=== PATIENT | male | born 1945 | race African-American/Black ===

== ENCOUNTER 2020-02-01 13:02 | Outpatient (CLI) | payer MEDICARE, OTHER ==
--- NOTE | 2020-02-05 11:26 | RAD ---
XR Ba Swallow W/Speech Therap History: Dysphagia unspecified R 13.10 feeding difficulties R 63.3 Comparison: None. Findings: Multiple consistency contrast given to the patient via the speech pathologist. The radiolog ist was not present. Impression: Fluoroscopy for the speech pathologist. Please see their report for details of the exam.
== END 2020-02-01 13:03 | disposition home or self-care (01) ==
PROVIDERS: ATTEND Family Medicine
DX: I69.891 Dysphagia following other cerebrovascular disease (principal); R13.10 Dysphagia, unspecified; R63.3 Feeding difficulties
CPT/HCPCS: 74230

== ENCOUNTER 2020-02-13 08:38 | Inpatient (IN) | payer MEDICARE, OTHER ==
[2020-02-13 09:49] LABS: #Eosinphils 0.1 thou/uL (0.0-0.7); #Monocytes 0.4 thou/uL (0.11-0.59); #Neutrophils 4.9 thou/uL (1.40-6.50); %Basophils 0.5 % (0.0-1.0); %Eosinophils 0.9 % (0.0-10.0); %Lymphocytes 15.5 % (21.0-51.0); %Neutrophils 77.1 % (42.0-75.0); Hemoglobin 12.3 g/dL (14.0-18.0); Mean Corpuscular HGB CONC 32.6 g/dL (32.0-36.0); Mean Corpuscular Hemoglobin 31.9 pg (27.0-31.0); Mean Corpuscular Volume 97.9 fL (78.0-98.0); Mean Platelet Volume 7.3 fL (7.4-10.4); Platelet Count 320 thou/uL (130-400); RBC Distribution Width 12.3 % (11.5-14.5); Red Blood Cell (RBC) Count 3.86 mill/uL (4.70-6.10); White Blood Cell (WBC) Count 6.4 thou/uL (4.8-10.8)
[2020-02-13 10:13] LABS: Bilirubin Negative (Negative); Blood, Urine Small (Negative); Glucose, Urine (Dipstick) Negative (Negative); Ketone, Urine Negative (Negative); Leukocyte Negative (Negative); Nitrite Negative (Negative); Protein, Urine (Dipstick) Trace mg/dL (Neg-Trace); pH, Urine 6.5 (5.0-9.0)
[2020-02-13 10:16] LABS: Clarity Clear (Clear)
[2020-02-13 10:27] LABS: Bacteria/HPF None Seen HPF (None Seen); Squamous Epithelial 0-3 HPF (0-3); Transitional Epithelial 0-3 HPF (None Seen)
[2020-02-13 10:28] LABS: Albumin 3.6 g/dL (3.4-4.8)
[2020-02-13 10:28] LABS: Mucous/LPF 1+ LPF (<2+)
[2020-02-13 10:29] LABS: Chloride 101 mmol/L (98-107); Potassium 4.5 mmol/L (3.5-5.1); Sodium 140 mmol/L (136-145)
[2020-02-13 10:30] LABS: Calcium 9.2 mg/dL (7.8-10.44); Glucose 95 mg/dL (83-110)
[2020-02-13 10:31] LABS: Globulin 4.3 g/dL (2.4-3.5); Protein, Total 7.9 g/dL (5.8-8.1)
[2020-02-13 10:32] LABS: Anion Gap 18 mmol/L (10-20); Bilirubin, Total 0.5 mg/dL (0.2-1.2); Carbon Dioxide 26 mmol/L (23-31)
[2020-02-13 10:33] LABS: Alkaline Phosphatase 76 U/L (40-110)
[2020-02-13 10:34] LABS: Calc. Creatinine Clearance 0 mL/min (70-130)
[2020-02-13 10:35] LABS: BUN (Urea Nitrogen) 19 mg/dL (8.4-25.7)
[2020-02-13 10:36] LABS: ALT (SGPT) 16 U/L (8-55); AST (SGOT) 15 U/L (5-34); Magnesium 2.3 mg/dL (1.6-2.6)
[2020-02-13] MEDS ORDERED: Senokot S 8.6-50 MG TAB PER TUBE PRN (12:39)
[2020-02-13] MEDS ORDERED: Acetaminophen 325 MG TAB PER TUBE PRN (12:39)
[2020-02-13] MEDS ORDERED: Ondansetron PF 4 MG/2 ML Vial IVP PRN (12:39)
[2020-02-13] MEDS ORDERED: Metoprolol Tartrate 5 MG/5 ML VIAL IVP PRN (13:24)
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
[2020-02-13] MEDS ORDERED: Melatonin 3 MG TAB PO SCH (21:00)
[2020-02-13] MEDS ORDERED: Atorvastatin Calcium 10 MG TAB PO SCH (21:00)
[2020-02-13] MEDS: OLANZapine 2.5 MG TAB PO SCH (21:13)
[2020-02-13] MEDS: Carvedilol 6.25 MG TAB PO SCH (21:14)
[2020-02-13 22:03] VITALS: BMI 15.5
[2020-02-13 23:56] LABS: SARS-CoV-2 MS2 Positive; SARS-CoV-2 N Gene Negative; SARS-CoV-2 S Gene Negative; SARS-CoV-2 by NAA Not Detected (NotDetected); SARS-CoV-2 orf1ab Negative
[2020-02-14 06:52] LABS: #Basophils 0.1 thou/uL (0.0-0.2); #Eosinphils 0.1 thou/uL (0.0-0.7); #Monocytes 0.5 thou/uL (0.11-0.59); #Neutrophils 4.1 thou/uL (1.40-6.50); %Basophils 1.2 % (0.0-1.0); %Eosinophils 1.9 % (0.0-10.0); %Lymphocytes 17.8 % (21.0-51.0); %Monocytes 8.1 % (0.0-10.0); %Neutrophils 71.1 % (42.0-75.0); Hemoglobin 12.4 g/dL (14.0-18.0); Mean Corpuscular HGB CONC 31.8 g/dL (32.0-36.0); Mean Corpuscular Hemoglobin 31.3 pg (27.0-31.0); Mean Corpuscular Volume 98.5 fL (78.0-98.0); Mean Platelet Volume 7.2 fL (7.4-10.4); Platelet Count 321 thou/uL (130-400); RBC Distribution Width 12.2 % (11.5-14.5); Red Blood Cell (RBC) Count 3.97 mill/uL (4.70-6.10); White Blood Cell (WBC) Count 5.7 thou/uL (4.8-10.8)
[2020-02-14 07:11] LABS: Anion Gap 12 mmol/L (10-20); BUN (Urea Nitrogen) 18 mg/dL (8.4-25.7); Calc. Creatinine Clearance 65 mL/min (70-130); Calcium 8.9 mg/dL (7.8-10.44); Carbon Dioxide 25 mmol/L (23-31); Chloride 106 mmol/L (98-107); Glucose 76 mg/dL (83-110); Potassium 4.1 mmol/L (3.5-5.1); Sodium 139 mmol/L (136-145)
--- NOTE | 2020-02-14 07:34 | PDOC.HOSPP ---
- Subjective Encounter Date: 02/14/20 Encounter Time: 07:32 Subjective: Patient seen and examined. No new complaints. No overnight events. Patient resting comfortably in bed, aphasic at baseline. Family working with palliative care team to determine PEG placement vs. palliative/hospice. Once family makes decision, we will proceed per their wishes. Patient npo. - Objective Vital Signs & Weight: Vital Signs (12 hours) Temp Pulse Resp BP Pulse Ox 02/14/20 03:57 97.9 F 56 L 18 163/94 H 100 02/13/20 23:34 97.2 F L 56 L 18 144/87 H 100 Weight Weight 108 lb I&O: 02/13/20 02/14/20 02/15/20 06:59 06:59 06:59 Intake Total 750 Balance 750 Result Diagrams: 02/14/20 06:39 02/14/20 06:39 Hospitalist ROS - Review of Systems ROS unobtainable: due to mental status - Medication Medications: Active Medications Generic Name Dose Route Start Last Admin Trade Name Freq PRN Reason Stop Dose Admin Carvedilol 6.25 mg 02/13/20 21:00 02/13/20 21:14 Carvedilol 6.25 Mg Tab PO Not Given BID JEFF Olanzapine 2.5 mg 02/13/20 21:00 02/13/20 21:13 Olanzapine 2.5 Mg Tab PO Not Given HS JEFF - Exam General Appearance: NAD, awake alert. negative: ill appearing General - other findings: cachectic Heart: RRR, no murmur, no gallops, no rubs, normal peripheral pulses Respiratory: CTAB, no wheezes, no rales, no ronchi, no tachypnea Respiratory - other findings: diminished to lower lobes Gastrointestinal: soft, non-tender, non-distended, normal bowel sounds, no guarding, no rigidity Extremities: no edema Skin: no rashes Neurological: no new deficit Psychiatric - other findings: alert, aphasic, tardive dyskinesia Hosp A/P (1) Dysphagia Code(s): R13.10 - DYSPHAGIA, UNSPECIFIED Status: Acute (2) Failure to thrive Code(s): ZOF6947 - Status: Acute Qualifiers: Failure to thrive age range: in adult Qualified Code(s): R62.7 - Adult failure to thrive (3) Severe protein-calorie malnutrition Code(s): E43 - UNSPECIFIED SEVERE PROTEIN-CALORIE MALNUTRITION Status: Acute (4) Dementia Code(s): F03.90 - UNSPECIFIED DEMENTIA WITHOUT BEHAVIORAL DISTURBANCE Status: Chronic (5) Bipolar disorder Code(s): F31.9 - BIPOLAR DISORDER, UNSPECIFIED Status: Chronic (6) Schizophrenia Code(s): F20.9 - SCHIZOPHRENIA, UNSPECIFIED Status: Chronic (7) HTN (hypertension) Code(s): I10 - ESSENTIAL (PRIMARY) HYPERTENSION Status: Chronic (8) HLD (hyperlipidemia) Code(s): E78.5 - HYPERLIPIDEMIA, UNSPECIFIED Status: Chronic - Plan The patient's family is working with palliative care team to determine best course of action for patient and family. Per nursing, spouse wants to go forward with PEG tube insertion. GI consulted, appreciate recs. Nursing to make GI aware of family wishes. Covid negative Reviewed labs, stable. Will start patient on IVFs with dextrose and potassium. NPO. Discussed case with attending physician, Dr. Alaniz.
[2020-02-14] MEDS ORDERED: FLU VACC QS2020-21(65YR UP)/PF 240 MCG/0.7 ML SYRINGE IM ONE (09:00)
[2020-02-14] MEDS: Carvedilol 6.25 MG TAB PO SCH ×2 (09:01→22:12)
[2020-02-14] MEDS: Potassium Chloride 10 MEQ in Dextrose 5 % And 0.9 % NaCl 1,000 ML IV SCH (09:21)
[2020-02-14] MEDS ORDERED: Lidocaine 1% PF 5 ML VIAL ONE (11:30)
[2020-02-14] MEDS ORDERED: PROPOFOL 200 MG/20 ML VIAL ONE (11:30)
--- NOTE | 2020-02-14 16:32 | OP ---
DATE OF PROCEDURE: 02/14/2020 PROCEDURES PERFORMED: 1. Esophagogastroduodenoscopy with biopsy. 2. Percutaneous gastrostomy tube placement. INDICATIONS FOR PROCEDURE: Oropharyngeal dysphagia with aspiration on modified volume barium swallow study. DESCRIPTION OF PROCEDURE: After the risks and benefits of the procedure were explained to the patient's surrogate (the patient's , Gail Millard) including risks of bleeding, infection, perforation, reactions to anesthesia, aspiration, and/or pain, informed consent was obtained. The patient was then taken to the endoscopy suite where he was placed in the supine position in preparation for the upper endoscopy. Deep sedation was administered via propofol and anesthesia support. Once adequate sedation was achieved, the standard gastroscope was introduced into the mouth with intubation of the esophagus, stomach, and the proximal small intestines with the findings listed below. After the initial examination of the EGD portion of this examination was done using one-to-one compression and transillumination, a suitable site for the gastrostomy tube placement was elucidated at approximately 2 cm inferiorly to the left ribs. The site was then cleaned with chlorhexidine and allowed to dry, at which point the site was then prepped in sterile fashion using an aspiration needle, approximately 2 to 3 mL of 1% lidocaine was then instilled initially at first in a wheel type fashion underneath the skin within the needle inverted perpendicular to the skin with back pressure as it was advanced into the stomach. On withdrawal of the needle from the stomach, the remaining 2 to 3 mL of lidocaine was then instilled. All sharps were then contained in the back field. Using a surgical scalpel, a 1 cm vertical incision was then made in the skin with mild oozing of blood from the site, that was easily controlled using only gauze. Then, using a Finder needle, it was then advanced into the stomach with the needle removed from the catheter upon entry into the stomach. A guidewire was then fed through the catheter and retrieved on the other side using a snare via the biopsy port of the scope. The guidewire was then withdrawn through the esophagus and out of the mouth with good maintenance of control of the guidewire at both ends at all times. A 20-Russian percutaneous gastrostomy tube was then affixed to the guidewire, and using a push technique, it was advanced into the stomach and out through the anterior wall of the stomach and through the skin. Once this was performed, second-look endoscopy was then performed, confirming positioning of the percutaneous gastrostomy tube, which was freely rotatable. On completion of this portion of the procedure, all equipment was removed the patient and the percutaneous gastrostomy tube was cut to length with the external adapter placed at that time. FINDINGS: Esophagus: Normal-appearing mucosa was seen in the proximal, mid, and distal esophagus. There was no evidence of erosions, ulcerations, mass lesions, or active/recent bleeding. Stomach: Normal-appearing mucosa was seen at the gastroesophageal junction and within the gastric cardia. However, a 3-cm irregularly-edged patch of whitish-appearing mucosa was seen in the gastric fundus, surrounded by normal-appearing mucosa. Normal-appearing mucosa was then seen in the remainder of the fundus, body, greater curvature, antrum, and incisura. Random gastric biopsies were then obtained from the antrum, incisura, body, and this whitish patch and placed in a specimen jar for further evaluation. Duodenum: Normal-appearing mucosa was seen within the proximal portion of the duodenal bulb; however, numerous superficial ulcerations, measuring between 2 to 5 mm in size, were seen in the distal portion of the duodenal bulb and extending into the duodenal sweep. None of these ulcerations exhibited high-risk stigmata of active or recent bleeding. Once past the duodenal sweep, no additional ulcerations were seen in the distal 2nd portion and 3rd portion of the duodenum. There was no evidence of mass lesions or active/recent bleeding seen in this region. Again, random gastric biopsies were taken previously for evaluation of possible H pylori status. PEG tube placement: A 20-Russian [employer] percutaneous gastrostomy tube was successfully placed within the anterior wall of the stomach with the procedure outlined as above. On second-look endoscopy, it was in appropriate position and freely rotatable. IMPRESSION: 1. Successful placement of a 20-Russian [employer] percutaneous gastrostomy tube. 2. A 3-cm whitish patch in the gastric fundus consistent with atrophic gastritis. 3. Numerous small superficial ulcerations seen in the distal duodenal bulb and second portion of the duodenum, concerning for Helicobacter pylori versus nonsteroidal anti-inflammatory drug use; status post random gastric biopsies for evaluation. RECOMMENDATIONS: 1. Would continue the patient n.p.o. status for the next 6 hours, then start tube feeds according to Dietary recommendations. 2. Would follow up on the biopsy results and treat if positive for H pylori. 3. Would refrain from any NSAIDs during this admission given the ulcerations seen in the duodenal bulb. 4. Pain control per primary team. 5. Would continue the patient on an abdominal binder given the increased likelihood of inadvertent removal of the percutaneous gastrostomy tube. 6. If the gastrostomy tube is inadvertently removed within the next 6 weeks, this could be considered as surgical emergency with urgent General Surgery consult and stat CT scan for further evaluation at that time (if needed). 7. Would adhere to standard PEG tube care precautions; (for example, would refrain from placing any materials between the external bumper and the skin, maintain a distance of 1 cm between the external bumper and the skin at all times, would be able to rotate the percutaneous gastrostomy to 720 degrees in either direction daily, would clean the wound with running soap and water, would instill approximately 60 mL of water before and after any tube feeds to maintain the integrity of the enteric tube). We will continue to follow. Please call with any questions. Job ID: [id number]
[2020-02-14] MEDS: OLANZapine 2.5 MG TAB PO SCH (22:12)
[2020-02-15] MEDS: Potassium Chloride 10 MEQ in Dextrose 5 % And 0.9 % NaCl 1,000 ML IV SCH (05:26)
[2020-02-15 05:39] LABS: #Lymphocytes 0.8 thou/uL (1.20-3.40); #Monocytes 0.6 thou/uL (0.11-0.59); #Neutrophils 17.5 thou/uL (1.40-6.50); %Eosinophils 0.1 % (0.0-10.0); Hemoglobin 11.3 g/dL (14.0-18.0); Mean Corpuscular HGB CONC 33.4 g/dL (32.0-36.0); Mean Corpuscular Hemoglobin 33.4 pg (27.0-31.0); Mean Platelet Volume 7.1 fL (7.4-10.4); Platelet Count 288 thou/uL (130-400); RBC Distribution Width 12.3 % (11.5-14.5); Red Blood Cell (RBC) Count 3.37 mill/uL (4.70-6.10); White Blood Cell (WBC) Count 18.8 thou/uL (4.8-10.8)
[2020-02-15] MEDS: Carvedilol 6.25 MG TAB PO SCH ×2 (09:18→21:42)
[2020-02-15 09:58] LABS: Sodium 142 mmol/L (136-145)
[2020-02-15 10:01] LABS: Anion Gap 11 mmol/L (10-20)
[2020-02-15] MEDS ORDERED: Iopamidol-370 76% 500 ML 1 ML ONE (11:14)
[2020-02-15 12:07] LABS: Potassium 6.5 mmol/L (3.5-5.1)
[2020-02-15 12:08] LABS: Chloride 129 mmol/L (98-107)
[2020-02-15 12:09] LABS: Carbon Dioxide 10 mmol/L (23-31)
[2020-02-15 12:10] LABS: BUN (Urea Nitrogen) 8 mg/dL (8.4-25.7); Calc. Creatinine Clearance 43 mL/min (70-130)
[2020-02-15 12:22] LABS: Glucose 2259 mg/dL (83-110)
[2020-02-15 12:23] LABS: Calcium 5.3 mg/dL (7.8-10.44)
[2020-02-15 13:55] LABS: Anion Gap 14 mmol/L (10-20); BUN (Urea Nitrogen) 17 mg/dL (8.4-25.7); Calc. Creatinine Clearance 67 mL/min (70-130); Calcium 8.4 mg/dL (7.8-10.44); Carbon Dioxide 27 mmol/L (23-31); Chloride 105 mmol/L (98-107); Glucose 132 mg/dL (83-110); Sodium 142 mmol/L (136-145)
--- NOTE | 2020-02-15 15:00 | PRG ---
DATE OF SERVICE: 02/15/2020 SUBJECTIVE: Mr. Millard has been tolerating his tube feeds per the nursing staff. Currently, his feeds were placed on hold due to a high blood sugar. OBJECTIVE: VITAL SIGNS: His temperature is 97.2, pulse 88, and blood pressure 123/63. GENERAL: He is in no acute distress. He is not verbally interactive. GI: His abdomen does tense with palpation, but his PEG site appears healthy and clear. I loosened the external bumper from 2 cm to 2.5 cm, which is not tight. His bowel sounds are present. LABORATORY DATA: His white blood cell count has increased to 18.8 today. IMPRESSION: 1. Oropharyngeal dysphagia with aspiration, status post percutaneous endoscopic gastrostomy tube placement yesterday. He has been tolerating his tube feeds well. His percutaneous endoscopic gastrostomy site appears healthy, and I loosened the external bumper. 2. Leukocytosis. His white blood cell count was elevated today. He has no fever. He is having his blood redrawn to reassess his glucose and potassium levels. RECOMMENDATIONS: 1. Considering the leukocytosis and significant lab abnormalities with drop in his bicarb, I will check a CT scan of the abdomen and pelvis. 2. If the CT is clear and the PEG tube appears to be in proper position, then I will be available as needed. Otherwise, we will adjust the plan based on CT findings and repeat labs. Job ID: [id number]
--- NOTE | 2020-02-15 16:16 | CT ---
CT ABDOMEN WITH CONTRAST CT PELVIS WITH CONTRAST: DATE: 02/15/20 HISTORY: 74-year-old male with leukocytosis. COMPARISON: None. TECHNIQUE: IV injection of iodinated contrast media: 80 mL Isovue. Oral contrast media: Not administered. FINDINGS: PEG tube in stomach. Images degraded by patient breathing motion artifact. Study also limited by almost complete absence o f visceral fat, making it difficult to separate out bowel loops. Very large amount of stool distending the rectum to dimensions of 9 cm transverse x 8.5 cm AP. Difficult to evaluate for fat stranding because of lack of visceral fat. No destructive osseous lesion. Right lung base clear. Tiny left pleural effusion and mild adjacent left posterobasilar lower lobe pa ssive atelectasis. No small bowel dilation. No large volume of ascites or large volume pneumoperitoneum identified. No hydronephrosis or pyelonephritis. Atherosclerotic calcification without aneurysm of abdominal aorta and all of its branches. No definite pathology identified involving the liver, pancreas, adrenals, or spleen. Moderate amount of stool throughout the rest of the colon. appendix is difficult to identify with certainty. No gallb ladder distention. Incompletely distended urinary bladder. Mural thickening of the urinary bladder co uld be due to incomplete distention or cystitis. 3 x 3 x 2.5 cm right parapelvic renal cyst. IMPRESSION: 1. Evaluation limited because of almost complete absence of visceral fat and significant breathi ng motion artifact. 2. Stool impaction at the rectum, with risk for stercoral proctitis. 3. Percutaneous gastrostomy tube. 4. Tiny left pleural effusion and small posterobasilar left lower lobe air space opacity which i s favored to represent mild atelectasis rather than pneumonia. SOPHY Campbell POS: KAITLIN
--- NOTE | 2020-02-15 16:26 | PDOC.HOSPP ---
- Subjective Encounter Date: 02/15/20 Encounter Time: 16:10 Subjective: f/u for FTT/severe protein calorie malnutrition/oropharyngeal dysphagia s/p PEG tube placement 02/14/20. Restarting TF's with goal rate 50ml/h. - Objective Vital Signs & Weight: Vital Signs (12 hours) Temp Pulse Resp BP BP Pulse Ox 02/15/20 10:33 97.2 F L 88 16 123/63 94 L 02/15/20 09:18 146/81 H 02/15/20 07:45 97.2 F L 60 18 146/81 H 96 Weight Admit Weight 108 lb Weight 108 lb I&O: 02/14/20 02/15/20 02/16/20 06:59 06:59 06:59 Intake Total 750 2400 Balance 750 2400 Result Diagrams: 02/15/20 05:26 02/15/20 13:27 Additional Labs: Accuchecks 02/15/20 06:15 POC Glucose 143 H Laboratory Tests 02/14/20 06:39 WBC 5.7 Hospitalist ROS - Medication Medications: Active Medications Generic Name Dose Route Start Last Admin Trade Name Freq PRN Reason Stop Dose Admin Carvedilol 6.25 mg 02/13/20 21:00 02/15/20 09:18 Carvedilol 6.25 Mg Tab PO 6.25 mg BID JEFF Administration Potassium Chloride 10 meq/ 1,005 mls @ 50 mls/hr 02/14/20 07:45 02/15/20 05:26 Dextrose/Sodium Chloride IV 1,005 mls .Q20H6M JEFF Administration Olanzapine 2.5 mg 02/13/20 21:00 02/14/20 22:12 Olanzapine 2.5 Mg Tab PO 2.5 mg HS JEFF Administration - Exam General Appearance: ill appearing General - other findings: non-verbal and awake Eye: PERRL, anicteric sclera ENT: normocephalic atraumatic, no oropharyngeal lesions Neck: supple, symmetric, no JVD, no thyromegaly, no lymphadenopathy Heart: RRR, no gallops, no rubs, normal peripheral pulses Heart - other findings: S1, S2 Respiratory: CTAB, no wheezes, rhonchi Gastrointestinal: soft, non-tender, non-distended, normal bowel sounds Gastrointestinal - other findings: PEG tube in place Extremities: no cyanosis, no clubbing, no edema Extremities - other findings: generalized atrophy Neurological: no new deficit Neurological - other findings: bedbound at baseline Musculoskeletal: generalized weakness, diffuse muscle atrophy Psychiatric: not oriented, somnolent Hosp A/P (1) Dysphagia Code(s): R13.10 - DYSPHAGIA, UNSPECIFIED Status: Chronic Qualifiers: Dysphagia type: oropharyngeal phase Qualified Code(s): R13.12 - Dysphagia, oropharyngeal phase Plan: s/p PEG placement with TF's, monitor residuals and for aspiration (2) Failure to thrive Code(s): [id number] - Status: Chronic Qualifiers: Failure to thrive age range: in adult Qualified Code(s): R62.7 - Adult failure to thrive (3) Severe protein-calorie malnutrition Code(s): E43 - UNSPECIFIED SEVERE PROTEIN-CALORIE MALNUTRITION Status: Chronic Plan: See above, TF's and monitor clinical response (4) Dementia Code(s): F03.90 - UNSPECIFIED DEMENTIA WITHOUT BEHAVIORAL DISTURBANCE Status: Chronic Plan: Advanced, end-stage process - Plan sr. social media & mobile manager, speech therapy, DVT proph w/SCDs Stable currently Continue TF's with goal rate 50ml/h Monitor for gastric residuals Monitor for aspiration Appreciate GI assistance Am lab: CBC Likely d/c in 24h
--- NOTE | 2020-02-15 16:34 | PRG ---
DATE OF SERVICE: 02/15/[address] scan of the abdomen and pelvis for Mr. Millard today due to some tensing of his abdomen with palpation and marked rise in his white blood cell count, status post PEG tube yesterday. I ordered the CT scan with IV and enteric contrast; however, the enteric contrast was not given through the PEG tube. I reviewed the images with Radiology and the necessary information was obtained without additional contrast necessitating repeat imaging. The PEG tube appears to be in place in the stomach without injury to surrounding bowel. He has a large amount of stool in the rectum. Will order enemas and scheduled MiraLax through the PEG tube. I will sign off. Please call if GI can be of assistance. Job ID: [id number]
[2020-02-15] MEDS: Fleet Enema 133 ML BOT PR SCH ×2 (19:44)
[2020-02-15] MEDS: Polyethylene Glycol 3350 17 GM Packet PER TUBE SCH (21:41)
[2020-02-15] MEDS: OLANZapine 2.5 MG TAB PO SCH (21:42)
[2020-02-16] MEDS: Potassium Chloride 10 MEQ in Dextrose 5 % And 0.9 % NaCl 1,000 ML IV SCH ×2 (02:35→09:13)
[2020-02-16 05:56] LABS: #Eosinphils 0.1 thou/uL (0.0-0.7); #Lymphocytes 0.9 thou/uL (1.20-3.40); #Monocytes 0.5 thou/uL (0.11-0.59); #Neutrophils 6.7 thou/uL (1.40-6.50); %Basophils 0.2 % (0.0-1.0); %Eosinophils 1.4 % (0.0-10.0); %Lymphocytes 10.4 % (21.0-51.0); %Monocytes 6.5 % (0.0-10.0); %Neutrophils 81.5 % (42.0-75.0); Hemoglobin 11.2 g/dL (14.0-18.0); Mean Corpuscular Hemoglobin 31.6 pg (27.0-31.0); Mean Corpuscular Volume 98.6 fL (78.0-98.0); Mean Platelet Volume 7.2 fL (7.4-10.4); Platelet Count 344 thou/uL (130-400); RBC Distribution Width 12.5 % (11.5-14.5); Red Blood Cell (RBC) Count 3.55 mill/uL (4.70-6.10); White Blood Cell (WBC) Count 8.3 thou/uL (4.8-10.8)
[2020-02-16] MEDS: Carvedilol 6.25 MG TAB PO SCH ×2 (09:06→21:15)
[2020-02-16] MEDS: Triamterene/Hydrochlorothiazide 37.5 mg/25 mg Tablet PER TUBE SCH (09:06)
[2020-02-16] MEDS: Polyethylene Glycol 3350 17 GM Packet PER TUBE SCH ×2 (09:07→21:15)
--- NOTE | 2020-02-16 09:54 | PDOC.HOSPP ---
- Subjective Encounter Date: 02/16/20 Encounter Time: 09:35 Subjective: f/u for dysphagia/FTT/severe protein calorie malnutrition s/p PEG placement receiving Jevity 1.5 TF's @ 50ml/h. No reports of high gastric residuals currently. - Objective Vital Signs & Weight: Vital Signs (12 hours) Temp Pulse Resp BP BP Pulse Ox 02/16/20 09:06 122/71 02/16/20 07:25 97.5 F L 50 L 16 122/71 100 02/16/20 03:35 97.5 F L 65 22 H 158/84 H 100 02/16/20 03:22 100 02/15/20 23:10 97.4 F L 60 18 144/80 H 100 Weight Admit Weight 108 lb Weight 108 lb I&O: 02/15/20 02/16/20 02/17/20 06:59 06:59 06:59 Intake Total 2400 2660 Balance 2400 2660 Result Diagrams: 02/16/20 05:41 02/15/20 13:27 Additional Labs: Laboratory Tests 02/14/20 06:39 WBC 5.7 Radiology Reviewed by me: Yes (CT abd/pel - PEG in place, large stool in rectum) Hospitalist ROS - Medication Medications: Active Medications Generic Name Dose Route Start Last Admin Trade Name Freq PRN Reason Stop Dose Admin Carvedilol 6.25 mg 02/13/20 21:00 02/16/20 09:06 Carvedilol 6.25 Mg Tab PO 6.25 mg BID JEFF Administration Potassium Chloride 10 meq/ 1,005 mls @ 50 mls/hr 02/14/20 07:45 02/16/20 09:13 Dextrose/Sodium Chloride IV 1,005 mls .Q20H6M JEFF Administration Olanzapine 2.5 mg 02/13/20 21:00 02/15/20 21:42 Olanzapine 2.5 Mg Tab PO 2.5 mg HS JEFF Administration Polyethylene Glycol 17 gm 02/15/20 21:00 02/16/20 09:07 Polyethylene Glycol 3350 17 Gm Packet PER TUBE 17 gm BID JEFF Administration Triamterene/Hydrochlorothiazide 0.5 tab 02/16/20 09:00 02/16/20 09:06 Triamterene/Hydrochlorothiazide 37.5 Mg/25 Mg Tablet PER TUBE 0.5 tab DAILY JEFF Administration - Exam General Appearance: ill appearing General - other findings: non-verbal and minimally responsive Eye: anicteric sclera ENT: normocephalic atraumatic, no oropharyngeal lesions Neck: supple, symmetric, no JVD, no thyromegaly, no lymphadenopathy Heart: RRR, no gallops, no rubs, normal peripheral pulses Heart - other findings: S1, S2 Respiratory: no wheezes Respiratory - other findings: few scattered coarse sounds Gastrointestinal: soft, non-tender, non-distended, normal bowel sounds, no palpable masses Gastrointestinal - other findings: PEG in place Extremities: no cyanosis, no clubbing Extremities - other findings: contractures of extremities Skin: normal turgor Neurological: no new deficit Musculoskeletal: generalized weakness Psychiatric: not oriented, somnolent, lethargic Hosp A/P (1) Dysphagia Code(s): R13.10 - DYSPHAGIA, UNSPECIFIED Status: Chronic Qualifiers: Dysphagia type: oropharyngeal phase Qualified Code(s): R13.12 - Dysphagia, oropharyngeal phase Plan: s/p PEG placement with initiation of TF's with Jevity 1.5 (2) Failure to thrive Code(s): [id number] - Status: Chronic Qualifiers: Failure to thrive age range: in adult Qualified Code(s): R62.7 - Adult failure to thrive (3) Severe protein-calorie malnutrition Code(s): E43 - UNSPECIFIED SEVERE PROTEIN-CALORIE MALNUTRITION Status: Chronic Plan: Continue Jevity 1.5 and convert to bolus feeds as pt resides in [facility], will monitor for tolerance of bolus feeds today (4) Dementia Code(s): F03.90 - UNSPECIFIED DEMENTIA WITHOUT BEHAVIORAL DISTURBANCE Status: Chronic Plan: End-stage - Plan social worker aide, speech therapy, DVT proph w/SCDs Stable currently Continue TF's converting to bolus feeds, monitor for tolerance/aspiration Monitor for gastric residuals Appreciate GI assistance Bowel regimen with Miralax/Senokot Likely d/c in 24h if tolerating bolus feeds
[2020-02-16] MEDS: OLANZapine 2.5 MG TAB PO SCH (21:15)
[2020-02-17] MEDS: Potassium Chloride 10 MEQ in Dextrose 5 % And 0.9 % NaCl 1,000 ML IV SCH (05:15)
[2020-02-17] MEDS: Polyethylene Glycol 3350 17 GM Packet PER TUBE SCH ×2 (08:51→21:27)
[2020-02-17] MEDS: Carvedilol 6.25 MG TAB PO SCH ×2 (08:51→21:27)
[2020-02-17] MEDS: Triamterene/Hydrochlorothiazide 37.5 mg/25 mg Tablet PER TUBE SCH (08:51)
--- NOTE | 2020-02-17 15:21 | EKG ---
Test Reason : Blood Pressure : / mmHG Vent. Rate : 073 BPM Atrial Rate : 073 BPM P-R Int : 138 ms QRS Dur : 072 ms QT Int : 406 ms P-R-T Axes : 081 076 080 degrees QTc Int : 447 ms Normal sinus rhythm Right atrial enlargement Septal infarct , age undetermined Abnormal ECG Confirmed by ALCIDES JJ, DENIZ (12), continuity editor ROSALIE CID ([id number]) on 02/17/2020 3:20:59 PM Referred By: Confirmed By:DENIZ MCGRATH MD
--- NOTE | 2020-02-17 15:38 | PDOC.HOSPP ---
- Subjective Subjective: confused. in mittens as he has tendency to pull out lines - Objective Vital Signs & Weight: Vital Signs (12 hours) Temp Pulse Resp BP Pulse Ox 02/17/20 15:00 97.4 F L 60 18 100 02/17/20 11:05 97.3 F L 55 L 16 149/76 H 99 02/17/20 07:29 97.5 F L 53 L 16 153/86 H 100 Weight Admit Weight 108 lb Weight 108 lb I&O: 02/16/20 02/17/20 02/18/20 06:59 06:59 06:59 Intake Total 2660 1485 1010 Output Total 698 Balance 2660 1485 312 Result Diagrams: 02/16/20 05:41 02/15/20 13:27 Hospitalist ROS - Medication Medications: Active Medications Generic Name Dose Route Start Last Admin Trade Name Freq PRN Reason Stop Dose Admin Carvedilol 6.25 mg 02/13/20 21:00 02/17/20 08:51 Carvedilol 6.25 Mg Tab PO 6.25 mg BID JEFF Administration Potassium Chloride 10 meq/ 1,005 mls @ 50 mls/hr 02/14/20 07:45 02/17/20 05:15 Dextrose/Sodium Chloride IV 1,005 mls .Q20H6M JEFF Administration Olanzapine 2.5 mg 02/13/20 21:00 02/16/20 21:15 Olanzapine 2.5 Mg Tab PO 2.5 mg HS JEFF Administration Polyethylene Glycol 17 gm 02/15/20 21:00 02/17/20 08:51 Polyethylene Glycol 3350 17 Gm Packet PER TUBE 17 gm BID JEFF Administration Triamterene/Hydrochlorothiazide 0.5 tab 02/16/20 09:00 02/17/20 08:51 Triamterene/Hydrochlorothiazide 37.5 Mg/25 Mg Tablet PER TUBE 0.5 tab DAILY JEFF Administration - Exam General Appearance: NAD Eye: PERRL ENT: normocephalic atraumatic Neck: supple Heart: RRR Respiratory: CTAB Gastrointestinal: soft, non-tender Gastrointestinal - other findings: + PEG Extremities: no cyanosis, no clubbing Skin: normal turgor Neurological - other findings: confused Musculoskeletal: normal tone Hosp A/P - Plan (1) Dysphagia Code(s): R13.10 - DYSPHAGIA, UNSPECIFIED Status: Chronic Qualifiers: Dysphagia type: oropharyngeal phase Qualified Code(s): R13.12 - Dysphagia, oropharyngeal phase Plan: --s/p PEG placement with initiation of TF's with Jevity 1.5 (2) Failure to thrive Code(s): [id number] - Status: Chronic Qualifiers: Failure to thrive age range: in adult Qualified Code(s): R62.7 - Adult failure to thrive (3) Severe protein-calorie malnutrition Code(s): E43 - UNSPECIFIED SEVERE PROTEIN-CALORIE MALNUTRITION Status: Chronic Plan: --Continue Jevity 1.5 and convert to bolus feeds as pt resides in [facility], will monitor for tolerance of bolus feeds today (4) Dementia Code(s): F03.90 - UNSPECIFIED DEMENTIA WITHOUT BEHAVIORAL DISTURBANCE Status: Chronic Plan: End-stage - Plan tolerate bolus TF Monitor for gastric residuals Appreciate GI assistance Cont bowel regimen with Miralax/Senokot Remove restraints - d/c back to SNF tomorrow if remains stable
[2020-02-17] MEDS: OLANZapine 2.5 MG TAB PO SCH (21:27)
[2020-02-18] MEDS ORDERED: Scopolamine 1.5 mg/72 hour Patch TD SCH (04:00)
[2020-02-18] MEDS: Triamterene/Hydrochlorothiazide 37.5 mg/25 mg Tablet PER TUBE SCH (08:06)
[2020-02-18] MEDS: Polyethylene Glycol 3350 17 GM Packet PER TUBE SCH (08:07)
[2020-02-18] MEDS: Carvedilol 6.25 MG TAB PO SCH (08:08)
--- NOTE | 2020-02-18 11:35 | RAD ---
EXAM: Chest one view: HISTORY: Cough COMPARISON: None FINDINGS: Minimal nonspecific blunting in the left costophrenic angle Heart size: Within normal limits. Lungs: Clear of acute process. No evidence for confluent lobar pneumonia, significant pleural effusion, acute edema, or pneumothorax , or other significant acute process. IMPRESSION: No significant acute intrathoracic disease.
[2020-02-18] MEDS: Potassium Chloride 10 MEQ in Dextrose 5 % And 0.9 % NaCl 1,000 ML IV SCH (11:48)
--- NOTE | 2020-02-18 13:30 | PDOC.DS.DS ---
Provider - Provider Date of Admission: 02/13/20 14:50 Date of Discharge: 02/18/20 Admitting Provider: Kendra Marin MD Consultations: Gastroentrology Primary Care Physician: Bill Coulter MD Course - Hospital Course Hospital Course: The patient is unfortunate 74 years old -[place] gentleman, intermediate resident, who has significant past medical history of advanced dementia, bipolar disorder, schizophrenia with tardive Dyskinesia, who was sent from intermediate for PEG tube placement aftere failed MBSS. He has failure to thrive, including weight loss, generalized weakness and muscle wasting. He was admitted to hospitalist service for further management. GI was consulted. Patient underwent PEG tube placement. Patient tolerated procedure well. He is tolerating bolus tube feeding. No residual. At this time, patient stable to discharge back to the intermediate to continue ongoing cares. Pertinent Studies: Abdomen and pelvics: Evaluation limited because almost complete absence of visceral fat and significant breathing motion artifact. Stool impactions at the rectum. Percutaneous G-tube. Tiny left pleural effusions and small posterior basilar left lower lobe airspace opacity Chest x-ray no acute cardiopulmonary process Procedures: G-tube placement due to oropharyngeal dysphagia with aspiration on modified barium swallow study. Placed by Dr. Dexter on 02/14/2020 Resuscitation Status: 02/13/20 12:39 Resuscitation Status Routine Co-Sign Provider: Resuscitation Status: FULL: Full Resuscitation Discussed with: spouse Additional comments: MPOA is Gail Millard, at [phone] - Labs Lab Results: 02/16/20 05:41 02/15/20 13:27 - Physical Exam Vitals: Vital Signs (12 hours) Temp Pulse Resp BP BP Pulse Ox 02/18/20 10:50 97.2 F L 53 L 16 163/82 H 100 02/18/20 08:08 157/80 H 100 02/18/20 07:25 97.3 F L 55 L 16 157/80 H 100 02/18/20 03:00 97.4 F L 16 105/49 L Weight Admit Weight 108 lb Weight 108 lb Physical Exam: The patient was seen and examined on the day of discharge. PHYSICAL EXAM: General Appearance: Alert, oriented, resting comfortably, no apparent distress, well developed/nourished. HEENT: Normocephalic/atraumatic, moist mucous membrane, normal ENT inspection, normal tones. PERRLA, no scleral icterus, normal conjunctiva Neck: Supple, normal inspection, no JVD Respiratory: Lungs are clear bilaterally, normal breath sounds, no accessory muscle use Cardiovascular: Regular rate, regular rhythm, no murmur, no rubs Abdomen: Soft, nontender, nondistended, normal bowel sounds, no organomegaly, no guarding no rebound. PEG tube placement, site clean, intact. Extremities: No clubbing, no cyanosis, no edema Psych/Mental Status: Normal affect, confused Neurologic: Patient is demented Skin: Warm/Dry, Normal Color, no rashes Problem - Problem (1) Dysphagia Code(s): R13.10 - DYSPHAGIA, UNSPECIFIED Status: Chronic Qualifiers: Dysphagia type: oropharyngeal phase Qualified Code(s): R13.12 - Dysphagia, oropharyngeal phase (2) Dementia Code(s): F03.90 - UNSPECIFIED DEMENTIA WITHOUT BEHAVIORAL DISTURBANCE Status: Chronic (3) Failure to thrive Code(s): [id number] - Status: Chronic Qualifiers: Failure to thrive age range: in adult Qualified Code(s): R62.7 - Adult failure to thrive (4) HLD (hyperlipidemia) Code(s): E78.5 - HYPERLIPIDEMIA, UNSPECIFIED Status: Chronic (5) HTN (hypertension) Code(s): I10 - ESSENTIAL (PRIMARY) HYPERTENSION Status: Chronic (6) Schizophrenia Code(s): F20.9 - SCHIZOPHRENIA, UNSPECIFIED Status: Chronic (7) Severe protein-calorie malnutrition Code(s): E43 - UNSPECIFIED SEVERE PROTEIN-CALORIE MALNUTRITION Status: Chronic Plan - Discharge Medications Home Medications: Medication Instructions Recorded Confirmed Type RX: Acetaminophen [Tylenol Extra 2 tab PO Q6HR PRN 02/13/20 02/13/20 History Strength] RX: Carvedilol 6.25 mg PO BID 02/13/20 02/13/20 History RX: Guaifenesin [Bidex] 400 mg PO Q6HR PRN 02/13/20 02/13/20 History RX: Loperamide HCl [Loperamide] 2 mg PO Q6HR PRN 02/13/20 02/13/20 History RX: Melatonin 5 mg PO HS 02/13/20 02/13/20 History RX: Multivitamin With Minerals 1 tab PO DAILY 02/13/20 02/13/20 History [Multiple Vitamin] RX: OLANZapine [Olanzapine] 2.5 mg PO HS 02/13/20 02/13/20 History RX: Ondansetron HCl [Zofran] 4 mg PO Q12HR PRN 02/13/20 02/13/20 History RX: Simvastatin 20 mg PO HS 02/13/20 02/13/20 History RX: Triamterene/Hydrochlorothiazid 0.5 tab PO DAILY 02/13/20 02/13/20 History [Triamterene-Hctz 37.5-25 mg Tb] Allergies: No Known Allergies Allergy (Verified 02/13/20 19:42) - Discharge Instructions Discharge Instructions:: Jevity 1.5 bolus feedings Q4H (0000, 0400, 0800, 1200, 1600) 85ml flushes before and after feedings. Peg tube site care. Keep clean and dry. 4x4 split gauze over site. Room air. Nothing to eat/drink (strict). Nourishment:: Tube Feeding Diet - Follow up Plan Referrals: Bill Coulter MD [Primary Care Provider] - Disposition: GROUP HOME FACILITY Quality - Care Measures CORE MEASURES:: N/A
[2020-02-18 16:03] VITALS: BP 136/81; TEMP 97.8
--- NOTE | 2020-02-20 05:34 | PQF ---
CLINICAL DOCUMENTATION CLARIFICATION FORM: Dear : Le. Moseley Date / Time: 02/20/20532 Please exercise your independent, professional judgment in responding to the clarification form. Clinical indicators are provided on the bottom of this form for your review In your clinical opinion based on clinical findings below, can you please identify the cause of Dysphagia: Please check appropriate box(es): [ ] Atrophic Gastritis [ X] Dementia [ ] Other diagnosis, please specify [ ] Unable to determine Physician Signature: Date/Time: For continuity of documentation, please document condition throughout progress notes and discharge summary. 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 Operative report Dr Gavin 02/13 Present Risk Factors Results and Location in Medical Record [x] 74 year-old Male H&P p1 02/12 [facility] [x] Severe Dementia H&P p1 02/12 [facility] [x] Severe Malnutrition H&P p3 02/12 [facility] [x] Gastritis Operative report Dr Gavin 02/13 [x] Duodenal ulcer Operative report Dr Gavin 02/13 [x] Former Smoker HP 02/12 Present Treatments Results and Location in Medical Record [x] Zyprexa 2.5 mg oral APR 26 [x] IV Zopran 4 gm APR 26 [x] IVF NS 1L APR 26 [x] PEG insertion Operative report Dr Gavin 02/13 [x] EGD with Gastric Biopsy Operative report Dr Gavin 02/13 [x] GE consult Consult Dr Díaz 02/12 CDS/Night Time Nanny Signature: Lupe Santiagojavier Phone #: ext [phone] Date/Time: 02/20/20532 This is a permanent part of the Medical Record MTDD
== END 2020-02-18 20:30 | DRG 884 ==
LOC: ERS 08:38 → ERHOLD 14:50 → SURG B 19:29
PROVIDERS: ADMIT Internal Medicine; ATTEND Family Medicine
PROC: 0DH63UZ Insertion of Feeding Device into Stomach, Percutaneous Approach (ICD-10-PCS; principal; 2020-02-14)
PROC: 0DB68ZX Excision of Stomach, Via Natural or Artificial Opening Endoscopic, Diagnostic (ICD-10-PCS; 2020-02-14)
DX: F03.90 Unspecified dementia, unspecified severity, without behavioral disturbance, psychotic disturbance, mood disturbance, and anxiety (principal); E43 Unspecified severe protein-calorie malnutrition; Z68.1 Body mass index [BMI] 19.9 or less, adult; R13.12 Dysphagia, oropharyngeal phase; R62.7 Adult failure to thrive; Z20.822 Contact with and (suspected) exposure to COVID-19; Z23 Encounter for immunization; E78.5 Hyperlipidemia, unspecified; I10 Essential (primary) hypertension; F20.9 Schizophrenia, unspecified; F31.9 Bipolar disorder, unspecified; G24.01 Drug induced subacute dyskinesia; K29.40 Chronic atrophic gastritis without bleeding; K26.9 Duodenal ulcer, unspecified as acute or chronic, without hemorrhage or perforation; D72.829 Elevated white blood cell count, unspecified; Z78.1 Physical restraint status; Z74.01 Bed confinement status; Z87.891 Personal history of nicotine dependence; Z79.899 Other long term (current) drug therapy
CPT/HCPCS: 36415; 36416; 51701; 71045; 74177; 80048; 80053; 81003; 81015; 83735; 85025; 87635; 88305; 88312; 90471; 90662; 90732; 93005; 96360; 96361; G0008; G0009; J0690; J2704; J3480; J7042; Q9967; U0003

== ENCOUNTER 2020-11-14 15:31 | Inpatient (IN) | payer MEDICARE, OTHER ==
[~2020-11-14 15:31] MED LIST: Iopamidol-370 76% 500 ML 1 ML ONE
[2020-11-14] MEDS: Sodium Chloride 0.9% 1,000 ML IV SCH (22:50)
[2020-11-15] MEDS: Sodium Chloride 0.9% 1,000 ML IV SCH (08:45)
[2020-11-15 09:30] VITALS: BMI 18.6
[2020-11-15] MEDS ORDERED: Bisacodyl 10 MG SUPP PR SCH (11:00)
[2020-11-15 12:04] LABS: #Eosinphils 0.2 thou/uL (0.0-0.7); #Lymphocytes 1.5 thou/uL (1.20-3.40); #Monocytes 0.9 thou/uL (0.11-0.59); #Neutrophils 7.5 thou/uL (1.40-6.50); %Basophils 0.1 % (0.0-1.0); %Eosinophils 2.3 % (0.0-10.0); %Lymphocytes 14.7 % (21.0-51.0); %Monocytes 8.5 % (0.0-10.0); %Neutrophils 74.4 % (42.0-75.0); Hemoglobin 10.8 g/dL (14.0-18.0); Mean Corpuscular HGB CONC 32.7 g/dL (32.0-36.0); Mean Corpuscular Hemoglobin 33.2 pg (27.0-31.0); Mean Platelet Volume 8.9 fL (7.4-10.4); Platelet Count 203 thou/uL (130-400); RBC Distribution Width 11.8 % (11.5-14.5); Red Blood Cell (RBC) Count 3.26 mill/uL (4.70-6.10); White Blood Cell (WBC) Count 10.1 thou/uL (4.8-10.8)
[2020-11-15 12:14] LABS: Anion Gap 14 mmol/L (10-20); BUN (Urea Nitrogen) 23 mg/dL (8.4-25.7); Calc. Creatinine Clearance 78 mL/min (70-130); Calcium 8.6 mg/dL (7.8-10.44); Carbon Dioxide 22 mmol/L (23-31); Chloride 109 mmol/L (98-107); Glucose 89 mg/dL (83-110); Sodium 141 mmol/L (136-145)
[2020-11-15 18:49] LABS: SARS-CoV-2 PCR by NAA Not Detected (NotDetected)
[2020-11-16] MEDS ORDERED: ceFAZolin 2 GM/DEX 5% 100 ML BAG ONE (10:05)
[2020-11-16] MEDS ORDERED: PROPOFOL 200 MG/20 ML VIAL ONE (10:20)
[2020-11-16] MEDS ORDERED: Ketamine 50 MG/ML (10ML VIAL) ONE (10:31)
[2020-11-16] MEDS ORDERED: Ondansetron HCl/PF 4 MG/2 ML Vial IVP PRN (11:02)
[2020-11-16] MEDS ORDERED: Ondansetron PF 4 MG/2 ML Vial IVP PRN (20:05)
[2020-11-16] MEDS: Melatonin 3 MG TAB PER TUBE SCH (21:31)
[2020-11-16] MEDS: Carvedilol 6.25 MG TAB PER TUBE SCH (21:31)
[2020-11-16] MEDS: Simvastatin 20 MG TAB PER TUBE SCH (21:33)
[2020-11-16] MEDS: OLANZapine 2.5 MG TAB PER TUBE SCH (21:33)
[2020-11-17] MEDS: Triamterene/Hydrochlorothiazide 37.5 mg/25 mg Tablet PER TUBE SCH (08:20)
[2020-11-17] MEDS: Carvedilol 6.25 MG TAB PER TUBE SCH ×2 (08:21→20:22)
[2020-11-17] MEDS: Melatonin 3 MG TAB PER TUBE SCH (20:22)
[2020-11-17] MEDS: OLANZapine 2.5 MG TAB PER TUBE SCH (20:22)
[2020-11-17] MEDS: Simvastatin 20 MG TAB PER TUBE SCH (20:22)
[2020-11-17] MEDS ORDERED: LACTINEX 1 TAB PER TUBE SCH (22:23)
[2020-11-18 07:10] VITALS: BP 144/93; TEMP 98
[2020-11-18] MEDS: Carvedilol 6.25 MG TAB PER TUBE SCH (08:14)
[2020-11-18] MEDS: Triamterene/Hydrochlorothiazide 37.5 mg/25 mg Tablet PER TUBE SCH (08:14)
== END 2020-11-18 13:37 | DRG 394 ==
LOC: ERS 15:31 → T4-B 19:59
PROVIDERS: ADMIT Student in an Organized Health Care Education/Training Program; ATTEND Internal Medicine
PROC: 0DH63UZ Insertion of Feeding Device into Stomach, Percutaneous Approach (ICD-10-PCS; principal; 2020-11-16)
PROC: 0DP68UZ Removal of Feeding Device from Stomach, Via Natural or Artificial Opening Endoscopic (ICD-10-PCS; 2020-11-16)
PROC: 3E0G76Z Introduction of Nutritional Substance into Upper GI, Via Natural or Artificial Opening (ICD-10-PCS; 2020-11-16)
DX: K94.23 Gastrostomy malfunction (principal); E44.0 Moderate protein-calorie malnutrition; Z68.1 Body mass index [BMI] 19.9 or less, adult; F03.90 Unspecified dementia, unspecified severity, without behavioral disturbance, psychotic disturbance, mood disturbance, and anxiety; Z20.822 Contact with and (suspected) exposure to COVID-19; Y83.1 Surgical operation with implant of artificial internal device as the cause of abnormal reaction of the patient, or of later complication, without mention of misadventure at the time of the procedure; E78.5 Hyperlipidemia, unspecified; F20.9 Schizophrenia, unspecified; F31.9 Bipolar disorder, unspecified; I10 Essential (primary) hypertension; K59.00 Constipation, unspecified; R13.12 Dysphagia, oropharyngeal phase; Z79.899 Other long term (current) drug therapy; Z74.01 Bed confinement status
CPT/HCPCS: 36415; 74177; 80048; 85025; J2704; J7050; Q9967; U0003; U0005

== ENCOUNTER 2022-11-20 21:39 | Emergency (ER) | payer MEDICARE, OTHER | END 2022-11-20 22:23 | disposition home or self-care (01) | LOC: ERS 21:39 | DX: K94.23 Gastrostomy malfunction (principal); E78.5 Hyperlipidemia, unspecified; I10 Essential (primary) hypertension | CPT/HCPCS: 43762 ==

== ENCOUNTER 2023-08-12 00:55 | Inpatient (IN) | payer MEDICARE, OTHER ==
[2023-08-12] MEDS ORDERED: Haloperidol Lactate 5 MG/ML VIAL ONE (01:53)
[2023-08-12 02:37] LABS: #Basophils 0.05 10x3/uL (0.0-0.2); %Basophils 0.3 % (0.0-1.0); %Eosinophils 0.6 % (0.0-10.0); %Lymphocytes 8.1 % (21.0-51.0); %Monocytes 4.9 % (0.0-10.0); %Neutrophils 85.8 % (42.0-75.0); Hematocrit 41.7 % (42.0-52.0); Hemoglobin 13.6 g/dL (14.0-18.0); Mean Corpuscular HGB CONC 32.6 g/dL (32.0-36.0); Mean Corpuscular Hemoglobin 33.7 pg (27.0-31.0); Mean Corpuscular Volume 103.5 fL (78.0-98.0); Platelet Count 338 10x3/uL (130-400); RBC Distribution Width 13.6 % (11.5-14.5); Red Blood Cell (RBC) Count 4.03 mill/uL (4.70-6.10)
[2023-08-12 02:52] LABS: ALT (SGPT) 19 U/L (8-55); AST (SGOT) 17 U/L (5-34); Albumin 3.3 g/dL (3.4-4.8); Alkaline Phosphatase 111 U/L (40-110); Anion Gap 19 mmol/L (10-20); BUN (Urea Nitrogen) 24 mg/dL (8.4-25.7); Bilirubin, Total 0.6 mg/dL (0.2-1.2); Calc. Creatinine Clearance 0 mL/min (70-130); Calcium 10.2 mg/dL (7.8-10.44); Carbon Dioxide 20 mmol/L (23-31); Chloride 106 mmol/L (98-107); Estimated GFR 94; Globulin 5.1 g/dL (2.4-3.5); Glucose 160 mg/dL (83-110); Potassium 4.5 mmol/L (3.5-5.1); Protein, Total 8.4 g/dL (5.8-8.1); Sodium 140 mmol/L (136-145)
[2023-08-12] MEDS ORDERED: Acetaminophen 325 MG Suppository ONE (05:09)
[2023-08-12] MEDS ORDERED: Piperacillin/Tazobactam 3.375 GM VIAL ONE (05:18)
[2023-08-12 05:56] LABS: Lactic Acid 3.1 mmol/L (0.5-2.2)
[2023-08-12] MEDS ORDERED: Acetaminophen 325 MG TAB PO PRN (08:15)
[2023-08-12] MEDS ORDERED: Ondansetron PF 4 MG/2 ML Vial IVP PRN (08:15)
[2023-08-12] MEDS ORDERED: Acetaminophen 650 MG Suppository PR PRN (08:15)
[2023-08-12] MEDS ORDERED: Ondansetron ODT 4 MG TAB PO PRN (08:15)
[2023-08-12] MEDS ORDERED: Bisacodyl 10 MG SUPP PR SCH (08:30)
[2023-08-12] MEDS: Azithromycin 500 MG in Sodium Chloride 0.9% 250 ML 250 ML IVPB SCH (08:44)
[2023-08-12] MEDS: Sodium Chloride 0.9% 1,000 ML IV SCH (08:45)
[2023-08-12] MEDS: Enoxaparin 30 MG (0.3 mL) SYRINGE SC SCH (08:45)
[2023-08-12 08:51] LABS: Phosphorus 3.4 mg/dL (2.3-4.7)
[2023-08-12] MEDS: Pantoprazole 40 MG VIAL IVP SCH (09:25)
[2023-08-12] MEDS: Piperacillin/Tazobactam 3.375 GM in Sodium Chloride 0.9% 100 ML IVPB SCH (10:11)
[2023-08-12] MEDS ORDERED: Piperacillin/Tazobactam 3.375 GM in Sodium Chloride 0.9% 100 ML IVPB SCH (12:00)
[2023-08-12 12:13] LABS: Bilirubin Negative (Negative); Blood, Urine 2+ (Negative); Clarity Turbid (Clear); Glucose, Urine (Dipstick) Normal (Negative); Ketone, Urine Negative (Negative); Leukocyte 500 Leu/uL (Negative); Nitrite 1+ (Negative); Protein, Urine (Dipstick) 30 mg/dL (Neg-Trace); RBC/HPF Greater than 50 HPF (0-3); Squamous Epithelial 0-3 HPF (0-3); Urobilinogen Normal mg/dL (Less than 2); WBC/HPF Greater than 50 HPF (0-3); pH, Urine 7.5 (5.0-9.0)
[2023-08-12 12:36] LABS: Bacteria/HPF 1+ HPF (None Seen)
[2023-08-12 12:40] LABS: Specific Gravity, Urine 1.045 (1.002-1.036)
[2023-08-12] MEDS ORDERED: Iopamidol-370 76% 500 ML MDV (1 ML CHARGE) ONE (15:24)
[2023-08-13 06:18] LABS: ALT (SGPT) 15 U/L (8-55); AST (SGOT) 17 U/L (5-34); Albumin 2.9 g/dL (3.4-4.8); Alkaline Phosphatase 85 U/L (40-110); Anion Gap 13 mmol/L (10-20); BUN (Urea Nitrogen) 21 mg/dL (8.4-25.7); Bilirubin, Total 0.7 mg/dL (0.2-1.2); Calc. Creatinine Clearance 65 mL/min (70-130); Calcium 9.3 mg/dL (7.8-10.44); Carbon Dioxide 20 mmol/L (23-31); Chloride 111 mmol/L (98-107); Estimated GFR 96; Globulin 4.5 g/dL (2.4-3.5); Glucose 91 mg/dL (83-110); Potassium 4.1 mmol/L (3.5-5.1); Protein, Total 7.4 g/dL (5.8-8.1); Sodium 140 mmol/L (136-145)
[2023-08-13 07:32] LABS: #Basophils 0.07 10x3/uL (0.0-0.2); %Basophils 0.6 % (0.0-1.0); %Eosinophils 2.1 % (0.0-10.0); %Lymphocytes 11.6 % (21.0-51.0); %Monocytes 5.7 % (0.0-10.0); %Neutrophils 79.7 % (42.0-75.0); Hematocrit 34.8 % (42.0-52.0); Hemoglobin 11.3 g/dL (14.0-18.0); Mean Corpuscular HGB CONC 32.5 g/dL (32.0-36.0); Mean Corpuscular Hemoglobin 33.1 pg (27.0-31.0); Mean Corpuscular Volume 102.1 fL (78.0-98.0); Mean Platelet Volume 12.2 fL (7.4-10.4); Platelet Count 250 10x3/uL (130-400); RBC Distribution Width 14.2 % (11.5-14.5); Red Blood Cell (RBC) Count 3.41 mill/uL (4.70-6.10)
[2023-08-13] MEDS: Pantoprazole 40 MG VIAL IVP SCH (08:31)
[2023-08-13] MEDS: Sodium Chloride 0.9% 1,000 ML IV SCH (16:03)
[2023-08-13] MEDS: Brimonidine Tartrate 0.2% Ophth Soln 5 ml Bottle EA EYE SCH (16:03)
[2023-08-13] MEDS: Dorzolamide HCl 2% Ophth (10 mL) Bottle EA EYE SCH (16:04)
[2023-08-13 17:10] VITALS: BMI 15.7
[2023-08-13] MEDS: Melatonin 3 MG TAB PO SCH (21:09)
[2023-08-13] MEDS: Latanoprost 0.005% Ophth Soln 2.5 ml Bottle EA EYE SCH (21:09)
[2023-08-13] MEDS: OLANZapine 2.5 MG TAB PER TUBE SCH (21:10)
[2023-08-13] MEDS: Hyoscyamine SL 0.125 MG TAB PER TUBE SCH (22:05)
[2023-08-14 10:33] LABS: #Basophils 0.05 10x3/uL (0.0-0.2); %Basophils 0.7 % (0.0-1.0); %Eosinophils 5.5 % (0.0-10.0); %Lymphocytes 17.1 % (21.0-51.0); %Monocytes 9.5 % (0.0-10.0); %Neutrophils 66.9 % (42.0-75.0); Hematocrit 31.7 % (42.0-52.0); Hemoglobin 10.6 g/dL (14.0-18.0); Mean Corpuscular HGB CONC 33.4 g/dL (32.0-36.0); Mean Corpuscular Hemoglobin 33.2 pg (27.0-31.0); Mean Corpuscular Volume 99.4 fL (78.0-98.0); Mean Platelet Volume 11.2 fL (7.4-10.4); Platelet Count 209 10x3/uL (130-400); Red Blood Cell (RBC) Count 3.19 mill/uL (4.70-6.10)
[2023-08-14] MEDS: Lactulose 20 GM (30 mL) UDCUP PER TUBE SCH ×2 (10:33→15:07)
[2023-08-15 05:26] LABS: #Basophils 0.04 10x3/uL (0.0-0.2); %Basophils 0.6 % (0.0-1.0); %Eosinophils 7.3 % (0.0-10.0); %Lymphocytes 13.8 % (21.0-51.0); %Monocytes 8.7 % (0.0-10.0); %Neutrophils 69.2 % (42.0-75.0); Hematocrit 32.9 % (42.0-52.0); Hemoglobin 10.6 g/dL (14.0-18.0); Mean Corpuscular HGB CONC 32.2 g/dL (32.0-36.0); Mean Corpuscular Hemoglobin 33.4 pg (27.0-31.0); Mean Corpuscular Volume 103.8 fL (78.0-98.0); Mean Platelet Volume 11.2 fL (7.4-10.4); Platelet Count 203 10x3/uL (130-400); RBC Distribution Width 13.8 % (11.5-14.5); Red Blood Cell (RBC) Count 3.17 mill/uL (4.70-6.10)
[2023-08-16 06:04] LABS: #Basophils 0.05 10x3/uL (0.0-0.2); %Basophils 0.9 % (0.0-1.0); %Eosinophils 10.9 % (0.0-10.0); %Lymphocytes 21.3 % (21.0-51.0); %Monocytes 10.4 % (0.0-10.0); %Neutrophils 55.9 % (42.0-75.0); Hematocrit 31.4 % (42.0-52.0); Hemoglobin 10.1 g/dL (14.0-18.0); Mean Corpuscular HGB CONC 32.2 g/dL (32.0-36.0); Mean Corpuscular Hemoglobin 33.4 pg (27.0-31.0); Mean Platelet Volume 10.6 fL (7.4-10.4); Platelet Count 224 10x3/uL (130-400); RBC Distribution Width 13.9 % (11.5-14.5); Red Blood Cell (RBC) Count 3.02 mill/uL (4.70-6.10)
[2023-08-16 06:55] LABS: ALT (SGPT) 11 U/L (8-55); AST (SGOT) 15 U/L (5-34); Albumin 2.5 g/dL (3.4-4.8); Alkaline Phosphatase 67 U/L (40-110); Anion Gap 10 mmol/L (10-20); BUN (Urea Nitrogen) 9 mg/dL (8.4-25.7); Bilirubin, Total 0.3 mg/dL (0.2-1.2); Calc. Creatinine Clearance 68 mL/min (70-130); Calcium 8.6 mg/dL (7.8-10.44); Carbon Dioxide 22 mmol/L (23-31); Chloride 112 mmol/L (98-107); Estimated GFR 98; Glucose 81 mg/dL (83-110); Potassium 3.6 mmol/L (3.5-5.1); Protein, Total 6.5 g/dL (5.8-8.1); Sodium 140 mmol/L (136-145)
[2023-08-16 11:38] VITALS: BMI 16.7
[2023-08-16 12:45] VITALS: BP 155/79
[2023-08-16 13:06] VITALS: TEMP 98.5
== END 2023-08-16 14:04 | DRG 871 ==
LOC: ERS 00:55 → ERHOLD 05:05 → SJJU 06:25
PROVIDERS: ADMIT Family Medicine; ATTEND Family Medicine
DX: A41.9 Sepsis, unspecified organism (principal); E43 Unspecified severe protein-calorie malnutrition; J69.0 Pneumonitis due to inhalation of food and vomit; K94.23 Gastrostomy malfunction; K31.1 Adult hypertrophic pyloric stenosis; Z68.1 Body mass index [BMI] 19.9 or less, adult; N39.0 Urinary tract infection, site not specified; F03.90 Unspecified dementia, unspecified severity, without behavioral disturbance, psychotic disturbance, mood disturbance, and anxiety; E78.5 Hyperlipidemia, unspecified; I10 Essential (primary) hypertension; Z79.899 Other long term (current) drug therapy; K52.89 Other specified noninfective gastroenteritis and colitis; R62.7 Adult failure to thrive; F20.9 Schizophrenia, unspecified; F31.9 Bipolar disorder, unspecified; Z74.01 Bed confinement status
CPT/HCPCS: 36415; 71045; 74177; 80053; 81001; 83605; 83735; 84100; 84443; 85025; 87040; C9113; J0456; J1630; J1650; J2543; J3490; J7050; Q9967

== ENCOUNTER 2023-08-25 13:49 | Emergency (ER) | payer MEDICARE, OTHER ==
[~2023-08-25 13:49] MED LIST changes: -Iopamidol-370 76% 500 ML 1 ML ONE; +Iopamidol-370 76% 500 ML MDV (1 ML CHARGE) ONE
[2023-08-25 14:45] LABS: #Basophils 0.05 10x3/uL (0.0-0.2); %Basophils 0.6 % (0.0-1.0); %Eosinophils 1.4 % (0.0-10.0); %Lymphocytes 10.6 % (21.0-51.0); %Monocytes 5.8 % (0.0-10.0); %Neutrophils 81.3 % (42.0-75.0); Hemoglobin 11.7 g/dL (14.0-18.0); Mean Corpuscular HGB CONC 32.5 g/dL (32.0-36.0); Mean Corpuscular Hemoglobin 33.2 pg (27.0-31.0); Mean Corpuscular Volume 102.3 fL (78.0-98.0); Platelet Count 325 10x3/uL (130-400); RBC Distribution Width 14.5 % (11.5-14.5); Red Blood Cell (RBC) Count 3.52 mill/uL (4.70-6.10)
[2023-08-25] MEDS ORDERED: Piperacillin/Tazobactam 4.5 GM VIAL ONE (14:55)
[2023-08-25] MEDS ORDERED: Sodium Chloride 0.9% 100 ML ONE (14:56)
[2023-08-25 14:59] LABS: Prothrombin Time 13.6 sec (12.0-14.7)
[2023-08-25 15:00] LABS: PTT 31.3 sec (22.9-36.1)
[2023-08-25 15:03] LABS: ALT (SGPT) 23 U/L (8-55); AST (SGOT) 22 U/L (5-34); Albumin 3.4 g/dL (3.4-4.8); Alkaline Phosphatase 85 U/L (40-110); Anion Gap 16 mmol/L (10-20); BUN (Urea Nitrogen) 25 mg/dL (8.4-25.7); Bilirubin, Total 0.3 mg/dL (0.2-1.2); Calc. Creatinine Clearance 0 mL/min (70-130); Calcium 9.8 mg/dL (7.8-10.44); Carbon Dioxide 24 mmol/L (23-31); Chloride 107 mmol/L (98-107); Estimated GFR 94; Globulin 4.8 g/dL (2.4-3.5); Glucose 136 mg/dL (83-110); Potassium 3.8 mmol/L (3.5-5.1); Protein, Total 8.2 g/dL (5.8-8.1); Sodium 143 mmol/L (136-145)
== END 2023-08-25 18:00 ==
LOC: ERS 13:49
DX: R10.9 Unspecified abdominal pain (principal); I10 Essential (primary) hypertension; Z79.899 Other long term (current) drug therapy
CPT/HCPCS: 71260; 74177; 80053; 82962; 83605; 85025; 85610; 85730; 87040; 87077; 87149 ×2; 93005; 94760; 96365; 99285; J2543; J3490; Q9967; 36415; 36416